=== PATIENT | male | born 1985 | race Hispanic/Latino ===

== ENCOUNTER 2019-12-25 17:01 | Inpatient (IN) | payer OTHER, SELFPAY ==
[2019-12-25] MEDS ORDERED: Ondansetron PF 4 MG/2 ML Vial ONE (17:14)
[2019-12-25] MEDS ORDERED: Fentanyl 100 MCG/2 ML VIAL ONE (17:14)
[2019-12-25] MEDS ORDERED: Ketorolac Tromethamine 30 MG/ML VIAL ONE (17:14)
[2019-12-25 17:48] LABS: #Lymphocytes 1.2 thou/uL (1.20-3.40); #Monocytes 1.2 thou/uL (0.11-0.59); %Basophils 0.4 % (0.0-1.0); %Eosinophils 0.1 % (0.0-10.0); %Lymphocytes 12.8 % (21.0-51.0); %Monocytes 12.3 % (0.0-10.0); %Neutrophils 74.4 % (42.0-75.0); Hemoglobin 17.8 g/dL (14.0-18.0); Mean Corpuscular HGB CONC 35.1 g/dL (32.0-36.0); Mean Corpuscular Hemoglobin 31.6 pg (27.0-31.0); Mean Corpuscular Volume 89.9 fL (78.0-98.0); Platelet Count 366 thou/uL (130-400); RBC Distribution Width 14.7 % (11.5-14.5); Red Blood Cell (RBC) Count 5.63 mill/uL (4.70-6.10); White Blood Cell (WBC) Count 9.4 thou/uL (4.8-10.8)
[2019-12-25 18:17] LABS: ALT (SGPT) 32 U/L (8-55); AST (SGOT) 19 U/L (5-34); Albumin 3.4 g/dL (3.5-5.0); Alkaline Phosphatase 73 U/L (40-110); BUN (Urea Nitrogen) 26 mg/dL (8.9-20.6); Bilirubin, Total 0.7 mg/dL (0.2-1.2); Calc. Creatinine Clearance 0 mL/min (70-130); Calcium 7.1 mg/dL (7.8-10.44); Carbon Dioxide Less than 8 mmol/L (22-29); Chloride 81 mmol/L (98-107); Estimated GFR-MDRD 15; Globulin 4.8 g/dL (2.4-3.5); Glucose 1260 mg/dL (70-105); Potassium 6.7 mmol/L (3.5-5.1); Protein, Total 8.2 g/dL (6.0-8.3); Sodium 118 mmol/L (136-145)
[2019-12-25 18:18] LABS: Lipase 3216 U/L (8-78)
[2019-12-25] MEDS ORDERED: Morphine 4 MG/ML VIAL ONE (18:21)
[2019-12-25 18:27] LABS: Bacteria/HPF None Seen HPF (None Seen); Bilirubin 1+ (Negative); Blood, Urine Negative (Negative); Clarity Clear (Clear); Glucose, Urine (Dipstick) Greater than 1000 mg/dL (Negative); Ketone, Urine 10 mg/dL (Negative); Leukocyte 25 Leu/uL (Negative); Nitrite Negative (Negative); Protein, Urine (Dipstick) 30 mg/dL (Neg-Trace); RBC/HPF 0-3 HPF (0-3); Specific Gravity, Urine 1.022 (1.002-1.036); Squamous Epithelial 0-3 HPF (0-3); Urobilinogen Normal mg/dL (Less than 2)
[2019-12-25 18:53] LABS: Acetaminophen Less than 6.0 mcg/mL (10.0-30.0); Alcohol Less than 10 mg/dL (Less than 10); Salicylate Less than 8.0 mg/dL (15.0-30.0)
[2019-12-25 18:59] LABS: Magnesium 1.9 mg/dL (1.6-2.6); Phosphorus 5.3 mg/dL (2.3-4.7)
[2019-12-25 19:02] LABS: Base Excess-Venous -14.4 mmol/L (-2.0 to 3.0); Bicarbonate (HCO3v) 10.2 mmol/L (22.0-28.0); CO2 Tension (PvCO2) 22.5 mmHg (40.0-50.0); Calcium, Ionized 0.74 mmol/L (See Comments:); Chloride 92 mmol/L (98-107); Hemoglobin - Calc 17.5 g/dL (14.0-18.0); Sodium 117 mmol/L (138-145); T. Carbon Dioxide 10.9 mmol/L (22.0-28.0); vO2 Saturation-calc 85.3 % (60.0-85.0)
[2019-12-25 19:02] LABS: Amphetamine Not Detected (NotDetected); Barbiturates Screen Not Detected (NotDetected); Benzodiazepine Screen Not Detected (NotDetected); Cocaine Metabolite Screen Not Detected (NotDetected); Medtox Control Line Valid? VALID (VALID); Medtox Reader # READER 1; Methadone Not Detected (NotDetected); Methamphetamine Not Detected (NotDetected); Opiate Screen Not Detected (NotDetected); Oxycodone Screen Not Detected (NotDetected); Phencyclidine (PCP) Not Detected (NotDetected); THC/Cannabinoid Screen Not Detected (NotDetected); Tricyclic Screen Not Detected (NotDetected)
--- NOTE | 2019-12-25 19:05 | CT ---
CT OF THE ABDOMEN AND PELVIS WITHOUT IV CONTRAST: Indication: History of abdominal pain. Comparison: None FINDINGS: The lung bases are clear. There is diffuse fatty infiltration of the liver with areas of focal hepatic sparing in the gallbladd er fossa. The unopacified gallbladder is unremarkable appearing. There is prominent inflammatory change surrounding the pancreas. There is edematous change involving the mesenteric leaves. There is increased fluid in the anterior pararenal space tracking down the rig ht posterolateral retroperitoneum. A very small amount of fluid is seen within the left anterior para renal space. There are small hypodensities involving the kidneys, difficult to characterize due to their size. No hydronephrosis is evident. Adrenal glands and spleen appear within normal limits. The large bowel is largely decompressed. There are thickened loops of jejunum within the left upper q uadrant which may be related to reactive enteritis from possible pancreatitis. The appendix is not definitely seen. The bladder is partially decompressed. The rectum and perirectal soft tissues are unremarkable. No acute osseous abnormality is evident. IMPRESSION: 1. Findings suspicious for acute pancreatitis with edematous change seen within the anterior pararena l space extending into the mesenteric leaves. There is suspected reactive enteritis of loops of jejun um. A component of ischemic enteritis cannot be entirely excluded. Follow up CT of the abdomen and pe lvis utilizing IV contrast may be better able to further characterize the stem complications related to pancreatitis. 2. Prominent fatty liver. 3. Hypodense lesions involving the kidneys, difficult to further characterize due to their size. Foll ow up renal ultrasound may be helpful for additional characterization. POS: KARL
[2019-12-25] MEDS ORDERED: INSULIN REGULAR IN 0.9 % NACL 100 UNIT/100 ML BAG ONE (19:32)
[2019-12-25 22:35] VITALS: BMI 34.2
[2019-12-25] MEDS ORDERED: Morphine 4 MG/ML VIAL SLOW IVP PRN ×2 (22:47→23:12)
[2019-12-25] MEDS ORDERED: Sodium Chloride 0.9% 1,000 ML IV PRN ×8 (22:53→23:00)
[2019-12-25] MEDS ORDERED: NS 0.9% w/ 20 MEQ KCL 1,000 ML IV PRN ×2 (22:53)
[2019-12-25] MEDS ORDERED: Acetaminophen 500 MG TAB PO PRN (22:53)
[2019-12-25] MEDS ORDERED: Ondansetron ODT 4 MG TAB PO PRN (22:53)
[2019-12-25] MEDS ORDERED: Dextrose 5 %-0.45 % NaCl 1,000 ML IV PRN ×2 (22:53→23:00)
[2019-12-25] MEDS ORDERED: Electrolyte Replacement Protoc 1 EACH EACH IVPB PRN (22:53)
[2019-12-25] MEDS ORDERED: Labetalol HCl 100 MG/20 ML VIAL SLOW IVP PRN (22:53)
[2019-12-25] MEDS ORDERED: D5 1/2 NS w/20 mEq KCL 1,000 ML IV PRN (23:00)
[2019-12-25] MEDS ORDERED: Dextrose 50% Abboject 50 ML SYRINGE SLOW IVP PRN (23:00)
[2019-12-25] MEDS ORDERED: Ondansetron ODT 4 MG TAB SL PRN (23:00)
[2019-12-25] MEDS ORDERED: ADD ELECTROLYTE REPLACEMENT SET TO PROFILE FS SCH (23:00)
[2019-12-25] MEDS ORDERED: HUMULIN R 100 UNITS in Sodium Chloride 0.9% 100 ML IVPB SCH (23:00)
[2019-12-25] MEDS ORDERED: Ondansetron PF 4 MG/2 ML Vial IVP PRN (23:00)
[2019-12-25] MEDS ORDERED: Insulin Regular 300 UNITS/3 ML VIAL IVP SCH (23:00)
[2019-12-25] MEDS ORDERED: NS 0.9% w/ 20 MEQ KCL 1,000 ML/1,000 ML BAG IV PRN ×2 (23:00)
[2019-12-25] MEDS ORDERED: Dextrose 5% in Water 1,000 ML IV PRN (23:00)
[2019-12-25 23:34] LABS: Anion Gap 27 mmol/L (10-20); BUN (Urea Nitrogen) 28 mg/dL (8.9-20.6); Calc. Creatinine Clearance 50 mL/min (70-130); Calcium 6.9 mg/dL (7.8-10.44); Carbon Dioxide 9 mmol/L (22-29); Chloride 96 mmol/L (98-107); Estimated GFR-MDRD 22; Glucose 925 mg/dL (70-105); Potassium 5.1 mmol/L (3.5-5.1); Sodium 127 mmol/L (136-145)
--- NOTE | 2019-12-26 01:31 | HP ---
PRIMARY CARE PROVIDER: Johnson Robertson. CHIEF COMPLAINT: Nausea, vomiting, general malaise, and weight loss. HISTORY OF PRESENT ILLNESS: This is a 34-year-old male, who presents to [facility] Emergency Department complaining of progressive nausea, vomiting, general malaise, abdominal cramping, poor oral intake, extreme thirst, and weight loss over the last several weeks. 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 The patient denied any exposure history or coworkers with similar complaints. The patient admits to extreme thirst, drinking multiple gallons of water a day to stay hydrated, but never able to catch up to his thirst. The patient denied any change to his bowel habits, but has noted profound weight loss of over 40 pounds in the last 4 weeks. The patient states he does lift weights and typically has more muscle mass that has decreased in the last several weeks. The patient states that he takes lisinopril for hypertension, which was prescribed to him while incarcerated, at which point, he was released and was given a year long supply. The patient denies follow up with any specific clinic or provider for followup. The patient does admit to drinking alcohol up to multiple beers in a week's time, but the quantity was unclear. In the emergency room, the patient underwent general evaluation with metabolic screening showing severe hyperglycemia with initial glucose of 1260. The patient was also noted with acute kidney injury with a creatinine of 4.5 and potassium ranging between 6.7 to 7.0. The patient was also noted with a lipase of over [address] imaging of the abdomen and pelvis confirming inflammatory changes. The patient was diagnosed with diabetic ketoacidosis, receiving aggressive IV fluid hydration in addition to insulin infusion with Novolin R, morphine sulfate, fentanyl, Toradol, and Zofran. PAST MEDICAL HISTORY: 1. Hypertension, treated with lisinopril. 2. Accelerated weight loss. PAST SURGICAL HISTORY: Reviewed and negative. CURRENT MEDICATIONS: Lisinopril 10 mg one tablet p.o. daily. ALLERGIES: NO KNOWN DRUG ALLERGIES. FAMILY HISTORY: Mother with diabetes mellitus. 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 Drinks socially weekly, quantity unclear. No tobacco or illicit drug use. REVIEW OF SYSTEMS: CONSTITUTIONAL: Negative for weight loss or gain, ability to conduct usual activities. SKIN: Negative for rash, itching. EYES: Negative for double vision, pain. ENT/MOUTH: Negative for nose bleeding, neck stiffness, pain, tenderness. CARDIOVASCULAR: Negative for palpitations, dyspnea on exertion, orthopnea. RESPIRATORY: Negative for shortness of breath, wheezing, cough, hemoptysis, fever or night sweats. GASTROINTESTINAL: Negative for poor appetite, abdominal pain, heartburn, nausea, vomiting, constipation, or diarrhea. GENITOURINARY: Negative for urgency, frequency, dysuria, nocturia. MUSCULOSKELETAL: Negative for pain, swelling. NEUROLOGIC/PSYCHIATRIC: Negative for anxiety, depression. ALLERGY/IMMUNOLOGIC: Negative for skin rash, bleeding tendency. Review of systems otherwise negative except as stated per HPI. PHYSICAL EXAMINATION: VITAL SIGNS: On admission, blood pressure 123/77, pulse 115, respiratory rate 20, temperature 97.8 degrees Fahrenheit, O2 saturation 100% on room air. GENERAL APPEARANCE: This is a 34-year-old male, ill appearing, lethargic, answers questions, in moderate distress. HEENT: Pupils are equal, round, reactive to light and accommodation. Extraocular muscles are intact. Mild conjunctival injection bilaterally. Nares patent. OP is clear. Teeth in poor repair. Oral mucosa dry. NECK: Supple. No cervical adenopathy. No thyromegaly. No carotid bruits. No JVD appreciated. Cervical spine with full active and passive range of motion. No meningeal signs noted. CHEST: Lungs are clear to auscultation bilaterally. CARDIOVASCULAR: S1, S2 with tachycardia. No murmur, rub, or gallop appreciated. ABDOMEN: Rounded with tenderness to palpation in the mid epigastric region. Bowel sounds are positive in all 4 quadrants. No palpable mass. No rebound. EXTREMITIES: Warm and dry with fair turgor. No clubbing, cyanosis, or asymmetric edema appreciated. Pulses palpable distally at the dorsalis pedis, posterior tibial, and popliteal arteries bilaterally. Capillary refill less than 2 seconds. NEUROLOGIC: Cranial nerves 2 through 12 are grossly intact. No focal or lateralizing signs appreciated. PERTINENT LABORATORY AND X-RAY FINDINGS: Sodium 118, potassium 6.7, chloride 81, CO2 less than 8, BUN 26, creatinine 4.50, glucose 1260, serum osmolality 357, calcium 7.1, phosphorus 5.3, magnesium 1.9. LFTs within normal limits. Albumin 3.4. Lipase 3216. TSH 3.16. CBC showed a white blood cell count of 9.4, hemoglobin 17.8, hematocrit 51, platelet count 366 with 74% neutrophils. Venous blood gas dated 12/25/2019 showed a pH of 7.26, pCO2 of 22.5, PO2 of 56, bicarb 10.2. Urine positive for greater than 1000 glucose, positive ketones, bilirubin, and leukocyte esterase. Urine drug screen dated 12/25/2019 negative. Beta-hydroxybutyrate level 10.33. Plasma alcohol level less than 10. CT of the abdomen and pelvis dated 12/25/2019 showed inflammatory changes of the pancreas with reactive enteritis in the loops of jejunum. Prominent fatty liver disease. EKG dated 12/25/2019 by my interpretation shows sinus tachycardia with heart rates in the 110s. Attenuated R-waves noted in the precordial leads. Peak T-waves noted. Normal axis. ASSESSMENT/PLAN: 1. Diabetic ketoacidosis. New onset diabetes by history. Admit to intermediate care unit and continue DKA protocol with insulin infusion, q.1 hour Accu-Cheks. Check A1c level in the a.m. Continue electrolyte replacement per protocol. Likely related to underlying acute pancreatitis. 2. Acute pancreatitis. We will continue supportive management. N.p.o. except for ice chips and sips of water. Pain control with morphine sulfate. Consult GI Service in the a.m. for any further recommendations. Repeat lipase in the a.m. 3. Acute kidney injury, suspect secondary to profound dehydration. Continue aggressive IV fluid resuscitation and avoid nephrotoxic agents and limit contrast exposure. 4. Hyperkalemia secondarily to profound acidosis. We will continue management as outlined previously. Serial potassium monitoring. Continue telemetry. 5. Hyponatremia secondarily to pseudohyponatremia due to severe hyperglycemia. Continue IV fluids as outlined previously with serial sodium monitoring. 6. Prophylaxis. SCDs while in bed. Pepcid 20 mg IV q.12 hours. Dietitian consult in the a.m. CODE STATUS: Full. Surrogate medical decision maker is patient's brother. Job ID: [id number]
[2019-12-26 01:51] LABS: Glucose 788 mg/dL (70-105)
[2019-12-26] MEDS: Ondansetron PF 4 MG/2 ML Vial IVP PRN ×2 (03:34→10:28)
[2019-12-26 04:17] LABS: Hemoglobin A1c 12.5 % (4.0-6.0)
[2019-12-26 04:30] LABS: Glucose 661 mg/dL (70-105)
[2019-12-26 04:32] LABS: Anion Gap 21 mmol/L (10-20); BUN (Urea Nitrogen) 27 mg/dL (8.9-20.6); Calc. Creatinine Clearance 65 mL/min (70-130); Calcium 7.7 mg/dL (7.8-10.44); Carbon Dioxide 14 mmol/L (22-29); Chloride 104 mmol/L (98-107); Estimated GFR-MDRD 30; Potassium 3.8 mmol/L (3.5-5.1); Sodium 135 mmol/L (136-145)
[2019-12-26 04:43] LABS: Glucose 657 mg/dL (70-105)
[2019-12-26 04:45] LABS: Lipase 1332 U/L (8-78)
[2019-12-26] MEDS ORDERED: Magnesium 2 GM/50 ML 2 GM in Premix Bag 1 BAG IVPB SCH (05:15)
[2019-12-26 06:49] LABS: Anion Gap 21 mmol/L (10-20); BUN (Urea Nitrogen) 26 mg/dL (8.9-20.6); Calc. Creatinine Clearance 74 mL/min (70-130); Calcium 7.5 mg/dL (7.8-10.44); Carbon Dioxide 15 mmol/L (22-29); Chloride 106 mmol/L (98-107); Estimated GFR-MDRD 35; Glucose 510 mg/dL (70-105); Potassium 3.5 mmol/L (3.5-5.1); Sodium 138 mmol/L (136-145)
[2019-12-26] MEDS: HUMULIN R 100 UNITS in Sodium Chloride 0.9% 100 ML IVPB SCH (07:04)
[2019-12-26 07:22] LABS: Glucose 476 mg/dL (70-105)
[2019-12-26] MEDS ORDERED: Famotidine/PF 20 mg/2ml Vial SLOW IVP SCH (09:00)
[2019-12-26] MEDS: Potassium Chloride 20 MEQ in Premix Bag 1 BAG IVPB SCH ×2 (09:10→11:29)
[2019-12-26 10:33] LABS: Anion Gap 19 mmol/L (10-20); BUN (Urea Nitrogen) 25 mg/dL (8.9-20.6); Calc. Creatinine Clearance 91 mL/min (70-130); Calcium 7.6 mg/dL (7.8-10.44); Carbon Dioxide 16 mmol/L (22-29); Chloride 110 mmol/L (98-107); Estimated GFR-MDRD 43; Glucose 375 mg/dL (70-105); Sodium 141 mmol/L (136-145)
[2019-12-26 10:40] LABS: Magnesium 2.6 mg/dL (1.6-2.6)
[2019-12-26 12:00] LABS: SARS-CoV-2 MS2 Positive; SARS-CoV-2 N Gene Negative; SARS-CoV-2 S Gene Negative; SARS-CoV-2 by NAA Not Detected (NotDetected); SARS-CoV-2 orf1ab Negative
[2019-12-26] MEDS: Multivitamins, Adult 10 ML, Folic Acid 1 MG, Thiamine HCl 100 MG in Dextrose 5 %-0.45 %... IV SCH (13:26)
[2019-12-26] MEDS ORDERED: Potassium Phosphate 15 MMOL in Sodium Chloride 0.9% 100 ML IVPB SCH (13:30)
[2019-12-26] MEDS ORDERED: PHOS-NAK 1 PKT PACK PO SCH (14:00)
[2019-12-26 14:43] LABS: Anion Gap 18 mmol/L (10-20); BUN (Urea Nitrogen) 23 mg/dL (8.9-20.6); Calc. Creatinine Clearance 103 mL/min (70-130); Calcium 7.9 mg/dL (7.8-10.44); Carbon Dioxide 18 mmol/L (22-29); Chloride 111 mmol/L (98-107); Estimated GFR-MDRD 50; Glucose 340 mg/dL (70-105); Potassium 4.1 mmol/L (3.5-5.1); Sodium 143 mmol/L (136-145)
--- NOTE | 2019-12-26 16:57 | CON ---
DATE OF CONSULTATION: 12/26/2019 CONSULTING PHYSICIAN: Dr. Angelo Carbajal. REASON FOR CONSULTATION: Pancreatitis. HISTORY OF PRESENT ILLNESS: Mr. Lucas is a pleasant 34-year-old gentleman, who came to the hospital late yesterday afternoon with complaints of 40-pound weight loss, nausea, vomiting, severe thirst, and general malaise. More recently, he developed severe epigastric pain. A diagnosis of new onset diabetes with DKA was made with an initial glucose of 1260. He also had a creatinine of 4.5 and lipase of over 3000. A CT without contrast showed inflammatory changes in the pancreas. He has been treated. Presently, the patient states he has pretty severe epigastric pain still. He has had no nausea or vomiting. I talked with his nurse. He has received about 5 L of fluid since admission. He is voiding about 400 mL so far today. He has had no fever or chills. PAST MEDICAL HISTORY: Hypertension, apparently it was diagnosed when he was incarcerated. He has been treated with lisinopril. PAST SURGICAL HISTORY: Negative. MEDICATIONS: At home, lisinopril. Medications here; 1. P.r.n. Tylenol. 2. Tums. 3. D5 half-normal at 250 an hour. 4. Pepcid 20 IV daily. 5. Insulin drip. 6. P.r.n. labetalol. 7. Electrolyte replacement protocol. 8. P.r.n. morphine. 9. P.r.n. Zofran. 10. He has had potassium replacement 20 mEq today. ALLERGIES: NONE KNOWN. FAMILY HISTORY: Mother had diabetes. No family history of pancreatitis or colon cancer or liver disease. SOCIAL HISTORY: The patient works with [employer]. Drinks about 6 packs 3 days a week. Does not smoke or use drugs. REVIEW OF SYSTEMS: GENERAL: Notable for about a 40-pound weight loss over the past several months, fatigue, myalgias, and inability really to stay hydrated. SKIN: Negative for rash. EYES: Some change in vision, but no double vision. No eye pain. MOUTH: No history of thrush, dysphagia, or odynophagia. No melena, hematochezia, or hematemesis. HEART: Negative for palpitations, tachycardia, dyspnea on exertion, orthopnea, or chest pain. RESPIRATORY: Negative for shortness of breath, cough, or wheezing. GI: Positive for epigastric pain, severe, some radiation to the back. No history of gallstones. No prior history of pancreatitis. No change in bowel function, melena, or hematochezia. : Negative for dysuria, frequency, or urgency. MUSCULOSKELETAL: Negative for joint pain, rashes, or swelling. NEUROPSYCHIATRY: Negative for history of anxiety or depression. No history of prior strokes or CVAs or focal weaknesses. Review of systems otherwise per admission H and P. PHYSICAL EXAMINATION: GENERAL: The patient is resting in bed. He is somewhat uncomfortable with epigastric pain. He is moving around a little bit in bed, trying to get comfortable. HEENT: Nonicteric. Oropharynx is moist. NECK: Supple without nodes. There is no thyromegaly. There is no supraclavicular or infraclavicular adenopathy. LUNGS: Clear. HEART: Regular without clicks or murmurs. ABDOMEN: Soft, mildly protuberant, but no distention. No shifting dullness or fluid wave. Bowel sounds are quiescent. There is no evidence of bruising in the abdominal wall or flanks. There is no CVA tenderness. EXTREMITIES: Reveal no clubbing, cyanosis, or edema. SKIN: Fairly good skin turgor and good color. VITAL SIGNS: Temperature max 99.1, presently 96.2. O2 saturation 97%, blood pressure 145/119, heart rate 111. In's and out's not recorded, but the nurse tells me he has had about 400 mL of urine out today and he has had about 4 L so far bolus 250 an hour. LABORATORY STUDIES: White count on admission was 9, hemoglobin 17, platelet count of 366. Blood gas last night showed pH 7.26 and bicarb of 10. Sodium 141, potassium 4. BUN and creatinine are 25 and 1.7, down from 26 and 4.5 on admission. Glucose is 375, down from over 1000 on admission. Sodium has come up from 118. Urine osmolality is still elevated at 329. Calcium 7.6, phosphorus is 2, magnesium is 2.6. Triglycerides 1279. Lipase was 3260 on admission, 1332 today. Beta hydroxybutyrate dropped from 10 to 3. Drug screen was negative. Alcohol screen was negative. CT scan is reviewed by myself. ASSESSMENT: 1. New onset diabetes with DKA, managed appropriately by Medicine Service, he is having rapid improvement in his acidosis and glucose levels. 2. Severe dehydration with marked improvement with aggressive hydration. 3. Pancreatitis, likely related to alcohol and hypertriglyceridemia, which goes along with his DKA. RECOMMENDATIONS: 1. Continue n.p.o. as he still has pain. 2. Control pain. 3. Follow labs. 4. IV PPI for ulcer prophylaxis in light of heavy alcohol abuse in the past and pancreatitis. 5. Continue aggressive fluid resuscitation. 6. Strict in's and out's. 7. Banana bag daily. 8. At this point in time, it does not seem that he is at risk for DTs. 9. Continue to monitor magnesium and phosphorus daily. 10. The hypertriglyceridemia will improve with the insulin drip, but he may need diabetic medicines later. It is probably the combination of the newly diagnosis diabetes and alcohol that has given him elevated triglycerides, which is resulted in pancreatitis. Job ID: [id number]
[2019-12-26 18:36] LABS: Anion Gap 16 mmol/L (10-20); BUN (Urea Nitrogen) 20 mg/dL (8.9-20.6); Calc. Creatinine Clearance 122 mL/min (70-130); Calcium 7.9 mg/dL (7.8-10.44); Carbon Dioxide 15 mmol/L (22-29); Chloride 114 mmol/L (98-107); Estimated GFR-MDRD 61; Glucose 311 mg/dL (70-105); Potassium 4.1 mmol/L (3.5-5.1); Sodium 141 mmol/L (136-145)
--- NOTE | 2019-12-26 19:14 | PDOC.HOSPP ---
- Subjective Encounter Date: 12/26/19 Encounter Time: 11:00 Subjective: Patient seen and examined for acute pancreatitis with severe acute kidney injury and hyperkalemia. Abdominal pain and nausea slowly improving. No fever or chills reported. Denies any chest pain or shortness of breath. - Objective Vital Signs & Weight: Vital Signs (12 hours) Temp Pulse Ox 12/26/19 15:26 97.7 F 12/26/19 11:22 97.3 F L 12/26/19 08:00 97 12/26/19 07:33 96.2 F L Weight Admit Weight 245 lb 1.6 oz Weight 245 lb 1.6 oz Most Recent Monitor Data Heart Rate from ECG 101 NIBP 165/106 NIBP BP-Mean 125 Respiration from ECG 27 SpO2 99 I&O: 12/25/19 12/26/19 12/27/19 06:59 06:59 06:59 Intake Total 2048 3400 Output Total 2200 1250 Balance -152 2150 Result Diagrams: 12/25/19 17:27 12/26/19 18:05 Additional Labs: Accuchecks 12/26/19 12/26/19 12/26/19 18:57 18:07 17:03 POC Glucose 227 H 297 H 321 H 12/26/19 12/26/19 12/26/19 16:26 15:07 14:02 POC Glucose 283 H 293 H 299 H 12/26/19 12/26/19 12/26/19 13:23 12:15 11:06 POC Glucose 292 H 332 H 317 H 12/26/19 12/26/19 12/26/19 10:12 09:10 08:09 POC Glucose 328 H 371 H 380 H 12/25/19 12/25/19 12/25/19 22:27 21:55 20:44 POC Glucose Greater than 500 H Greater than 500 H Greater than 500 H 12/25/19 19:45 POC Glucose Greater than 500 H Laboratory Tests 12/25/19 12/26/19 12/26/19 17:20 03:43 10:02 Serum Osmolality 357 H* Phosphorus 2.0 L Triglycerides Lipase 1332 H 12/26/19 12/26/19 10:02 10:02 Serum Osmolality 329 H* Phosphorus Triglycerides 1279 H Lipase Laboratory Tests 12/26/19 03:44 Hemoglobin A1c 12.5 H Radiology Reviewed by me: Yes (Abdomen CTacute pancreatitis) EKG Reviewed by me: Yes (Sinus tachycardia on telemetry) Hospitalist ROS - Review of Systems Respiratory: denies: cough, dry, shortness of breath, hemoptysis, SOB with excertion, pleuritic pain, sputum, wheezing, other Cardiovascular: denies: chest pain, palpitations, orthopnea, paroxysmal noc. dyspnea, edema, light headedness, other - Medication Medications: Active Medications Generic Name Dose Route Start Last Admin Trade Name Freq PRN Reason Stop Dose Admin Potassium Chloride/Sodium Chloride 1,000 mls @ 500 mls/hr 12/25/19 22:53 12/26/19 09:10 Ns 0.9% W/ 20 Meq Kcl IV 1,000 mls .Q2H PRN Administration Step 2 of DKA Protocol Protocol Insulin Human Regular 100 101 mls @ 0 mls/hr 12/25/19 22:53 12/26/19 07:04 units/ Sodium Chloride IVPB 101 mls INF NASIM Administration Protocol Titrate Multivitamins 10 ml/ Folic 1,011.2 mls @ 250 mls/hr 12/26/19 11:15 12/26/19 13:26 Acid 1 mg/ Thiamine HCl 100 mg IV 1,011.2 mls / Dextrose/Sodium Chloride Q24HR NASIM Administration Morphine Sulfate 4 mg 12/25/19 23:12 12/26/19 10:24 Morphine 4 Mg/Ml Vial SLOW IVP 4 mg Q4H PRN Administration Moderate to Severe Pain (6-10) Ondansetron HCl 4 mg 12/25/19 22:53 12/26/19 10:28 Ondansetron Pf 4 Mg/2 Ml Vial IVP 4 mg Q6H PRN Administration Nausea/Vomiting - Exam General Appearance: NAD Eye: PERRL ENT: normocephalic atraumatic, no oropharyngeal lesions Neck: supple, no JVD Heart: RRR, no gallops, no rubs, normal peripheral pulses Respiratory: no wheezes, no rales, no ronchi, normal chest expansion Gastrointestinal: soft, normal bowel sounds, no guarding, no rigidity, tender to palpation (In the epigastric region) Extremities: no cyanosis, no clubbing Neurological: cranial nerve grossly intact, normal sensation to touch, no weakness, no focal deficits Musculoskeletal: normal tone, normal strength Psychiatric: normal affect, A&O x 3 Hosp A/P (1) Acute pancreatitis Code(s): K85.90 - ACUTE PANCREATITIS WITHOUT NECROSIS OR INFECTION, UNSP Status: Acute (2) Diabetic ketoacidosis Code(s): E11.10 - TYPE 2 DIABETES MELLITUS WITH KETOACIDOSIS WITHOUT COMA Status: Acute (3) Hyperkalemia Code(s): E87.5 - HYPERKALEMIA Status: Acute (4) Acute kidney injury Code(s): N17.9 - ACUTE KIDNEY FAILURE, UNSPECIFIED Status: Acute (5) New onset type 2 diabetes mellitus Code(s): E11.9 - TYPE 2 DIABETES MELLITUS WITHOUT COMPLICATIONS Status: Acute (6) Hypertriglyceridemia Code(s): E78.1 - PURE HYPERGLYCERIDEMIA Status: Acute (7) Electrolyte abnormality Code(s): E87.8 - OTH DISORDERS OF ELECTROLYTE AND FLUID BALANCE, NEC Status: Acute (8) Obesity (BMI 30.0-34.9) Code(s): E66.9 - OBESITY, UNSPECIFIED Status: Chronic - Plan DVT proph w/SCDs 12/25 Continue IMCU monitoring. Continue insulin drip per protocol. Patient will require insulin drip due to significant hypertriglyceridemia. Will monitor electrolytes closely. Replace electrolytes. N.p.o. for acute pancreatitis. Change Pepcid to Protonix. GI input appreciated. N.p.o. except for sips of water and ice chips. Recheck labs in a.m. Dietitian input appreciated. Patient was extensively counseled on diabetes mellitus type 2. His A1c is 12.5. He will probably require insulin at discharge.
[2019-12-26] MEDS: D5 1/2 NS w/20 mEq KCL 1,000 ML IV PRN (21:10)
[2019-12-26 22:35] LABS: Glucose 260 mg/dL (70-105)
[2019-12-27] MEDS: Calcium Carbonate 500 MG ChewTAB PO PRN ×2 (00:50→05:01)
[2019-12-27] MEDS: HUMULIN R 100 UNITS in Sodium Chloride 0.9% 100 ML IVPB SCH (00:50)
[2019-12-27] MEDS: D5 1/2 NS w/20 mEq KCL 1,000 ML IV PRN ×2 (02:08→06:03)
[2019-12-27 04:22] LABS: Anion Gap 12 mmol/L (10-20); BUN (Urea Nitrogen) 14 mg/dL (8.9-20.6); Calc. Creatinine Clearance 165 mL/min (70-130); Calcium 8.2 mg/dL (7.8-10.44); Carbon Dioxide 23 mmol/L (22-29); Chloride 108 mmol/L (98-107); Estimated GFR-MDRD 87; Glucose 193 mg/dL (70-105); Lipase 450 U/L (8-78); Potassium 3.4 mmol/L (3.5-5.1); Sodium 140 mmol/L (136-145)
[2019-12-27 04:34] LABS: Phosphorus 1.5 mg/dL (2.3-4.7); Triglycerides 556 mg/dL (Less than 150)
[2019-12-27] MEDS ORDERED: Potassium Phosphate 22 MMOL in Sodium Chloride 0.9% 250 ML 250 ML IVPB SCH (04:45)
[2019-12-27] MEDS ORDERED: Magnesium 2 GM/50 ML 2 GM in Premix Bag 1 BAG IVPB SCH (04:45)
[2019-12-27] MEDS ORDERED: Dextrose 50% Abboject 50 ML SYRINGE SLOW IVP PRN (08:44)
[2019-12-27] MEDS ORDERED: Dextrose 5% in Water 1,000 ML IV PRN (08:44)
[2019-12-27] MEDS ORDERED: cloNIDine 0.1 MG TAB PO PRN (08:46)
[2019-12-27] MEDS ORDERED: Insulin Glargine 20 UNITS in Pre-Filled Syringe 1 EACH SC SCH (09:00)
[2019-12-27] MEDS ORDERED: Pantoprazole 40 MG VIAL IVP SCH (09:00)
[2019-12-27] MEDS: D5 1/2 NS w/20 mEq KCL 1,000 ML IV SCH ×2 (10:10→17:17)
[2019-12-27] MEDS: Multivitamins, Adult 10 ML, Folic Acid 1 MG, Thiamine HCl 100 MG in Dextrose 5 %-0.45 %... IV SCH (14:55)
[2019-12-27] MEDS: Insulin Regular 300 UNITS/3 ML VIAL SC PRN ×2 (17:26→20:52)
[2019-12-27] MEDS: Morphine 2 MG/ML VIAL SLOW IVP PRN ×2 (17:31→20:44)
--- NOTE | 2019-12-27 19:24 | PRG ---
DATE OF SERVICE: 12/27/2019 SUBJECTIVE: Mr. Lucas had his brother bring him some chicken and salad, which he did eat but felt full and had some pressure type epigastric pain following that. Otherwise, his abdominal pain had greatly improved prior to that earlier in the day. OBJECTIVE: VITAL SIGNS: Temperature 98.5, pulse 69, blood pressure 159/98. GENERAL: He is in no acute distress. Alert and oriented x3. LUNGS: Clear to auscultation bilaterally. HEART: Regular rate and rhythm without murmur. ABDOMEN: Mild tenderness in the epigastric region without guarding. Bowel sounds are present. EXTREMITIES: No lower extremity edema. LABORATORY DATA: Hemoglobin is 17.8 two days ago. Creatinine 0.9. Triglycerides dropped from 1200 down to 556. Lipase improved from 1300 to 450. IMPRESSION: 1. Diabetes ketoacidosis, resolved. 2. Hypertriglyceridemia induced acute pancreatitis. His acute pancreatitis is mild overall. However, he did have acute kidney injury and severe dehydration on presentation. This is improved with rehydration. 3. Hypertriglyceridemia. RECOMMENDATIONS: 1. Recommend starting gemfibrozil. 2. He can advance his diet as he tolerates to a low-fat diet. 3. Once he is tolerating his diet adequately without significant abdominal pain and his triglycerides are controlled, then he can discharge home. I will sign off for now. Please call if GI can be of assistance. Job ID: [id number]
[2019-12-27] MEDS: 1/2 NS w/KCL 20 mEq 1,000 ML IV SCH (20:49)
[2019-12-27] MEDS: NPH, Human Insulin Isophane 300 UNIT/3 ML VIAL SC SCH (20:51)
[2019-12-27] MEDS ORDERED: NPH, Human Insulin Isophane 300 UNIT/3 ML VIAL SC SCH (21:00)
--- NOTE | 2019-12-27 22:48 | PDOC.HOSPP ---
- Subjective Encounter Date: 12/27/19 Encounter Time: 10:00 Subjective: Patient seen and examined for diabetic ketoacidosis with acute pancreatitis. Triglycerides and 500 range today. Abdominal pain slowly improving. Some nausea without any vomiting. Had 1 small bowel movement earlier - Objective Vital Signs & Weight: Vital Signs (12 hours) Temp Pulse Resp BP Pulse Ox 12/27/19 20:00 99.9 F H 96 18 139/85 97 12/27/19 18:01 98.5 F 69 20 159/98 H 12/27/19 15:34 98.9 F 12/27/19 12:00 98.0 F Weight Admit Weight 245 lb 1.6 oz Weight 245 lb 1.6 oz Most Recent Monitor Data Heart Rate from ECG 91 NIBP 147/112 NIBP BP-Mean 123 Respiration from ECG 21 SpO2 96 I&O: 12/26/19 12/27/19 12/28/19 06:59 06:59 06:59 Intake Total 2048 6602 604 Output Total 2200 2300 200 Balance -152 4302 404 Result Diagrams: 12/25/19 17:27 12/27/19 03:21 Additional Labs: Accuchecks 12/27/19 12/27/19 12/27/19 20:47 15:36 12:12 POC Glucose 257 H 240 H 246 H 12/27/19 12/27/19 12/27/19 10:18 08:11 06:02 POC Glucose 243 H 193 H 137 H 12/27/19 12/27/19 12/27/19 05:00 02:10 01:08 POC Glucose 156 H 188 H 201 H 12/27/19 12/26/19 00:09 23:00 POC Glucose 233 H 234 H EKG Reviewed by me: Yes (Sinus rhythm on telemetry) Hospitalist ROS - Review of Systems Respiratory: denies: cough, dry, shortness of breath, hemoptysis, SOB with excertion, pleuritic pain, sputum, wheezing, other Cardiovascular: denies: chest pain, palpitations, orthopnea, paroxysmal noc. dyspnea, edema, light headedness, other - Medication Medications: Active Medications Generic Name Dose Route Start Last Admin Trade Name Freq PRN Reason Stop Dose Admin Calcium Carbonate 1,000 mg 12/25/19 22:53 12/27/19 05:01 Calcium Carbonate 500 Mg Chewtab PO 1,000 mg Q4H PRN Administration Heartburn or Indigestion Multivitamins 10 ml/ Folic 1,011.2 mls @ 250 mls/hr 12/26/19 11:15 12/27/19 14:55 Acid 1 mg/ Thiamine HCl 100 mg IV Not Given / Dextrose/Sodium Chloride Q24HR NASIM Potassium Chloride/Sodium Chloride 1,000 mls @ 75 mls/hr 12/27/19 17:30 12/27/19 20:49 1/2 Ns W/Kcl 20 Meq IV 1,000 mls .[id number] NASIM Administration Insulin Human NPH 10 unit 12/27/19 21:00 12/27/19 20:51 Nph, Human Insulin Isophane 300 Unit/3 Ml Vial SC 10 unit HS NASIM Administration Insulin Human Regular 0 units 12/27/19 08:44 12/27/19 17:26 Insulin Regular 300 Units/3 Ml Vial SC 4 unit .MODERATE SLIDING SC PRN Administration Moderate Correctional Scale Insulin Human Regular 0 units 12/27/19 08:44 12/27/19 20:52 Insulin Regular 300 Units/3 Ml Vial SC 3 unit .BEDTIME SLIDING SC PRN Administration Bedtime Correctional Scale Morphine Sulfate 2 mg 12/26/19 11:14 12/27/19 20:44 Morphine 2 Mg/Ml Vial SLOW IVP 12/29/19 11:15 2 mg Q4H PRN Administration Moderate Pain (4-6) Ondansetron HCl 4 mg 12/25/19 22:53 12/26/19 10:28 Ondansetron Pf 4 Mg/2 Ml Vial IVP 4 mg Q6H PRN Administration Nausea/Vomiting Sodium Chloride 10 ml 12/26/19 21:00 12/27/19 21:06 Flush - Normal Saline 10 Ml Syringe IVF Not Given Q12HR [facility] - Exam General Appearance: NAD Neck: supple, no JVD Heart: RRR, no gallops, no rubs, normal peripheral pulses Respiratory: no wheezes, no rales, no ronchi, normal chest expansion Gastrointestinal: non-distended, normal bowel sounds, no guarding, no rigidity, tender to palpation (Mainly in the epigastric region) Neurological: no weakness Psychiatric: A&O x 3 Hosp A/P (1) Acute pancreatitis Code(s): K85.90 - ACUTE PANCREATITIS WITHOUT NECROSIS OR INFECTION, UNSP Status: Acute (2) Diabetic ketoacidosis Code(s): E11.10 - TYPE 2 DIABETES MELLITUS WITH KETOACIDOSIS WITHOUT COMA Status: Acute (3) Hyperkalemia Code(s): E87.5 - HYPERKALEMIA Status: Acute (4) Acute kidney injury Code(s): N17.9 - ACUTE KIDNEY FAILURE, UNSPECIFIED Status: Acute (5) New onset type 2 diabetes mellitus Code(s): E11.9 - TYPE 2 DIABETES MELLITUS WITHOUT COMPLICATIONS Status: Acute (6) Hypertriglyceridemia Code(s): E78.1 - PURE HYPERGLYCERIDEMIA Status: Acute (7) Electrolyte abnormality Code(s): E87.8 - OTH DISORDERS OF ELECTROLYTE AND FLUID BALANCE, NEC Status: Acute (8) Obesity (BMI 30.0-34.9) Code(s): E66.9 - OBESITY, UNSPECIFIED Status: Chronic - Plan DVT proph w/SCDs 12/26 Continue banana bag daily. Will transition insulin drip to subcu Lantus. We will start with 20 units of Lantus. Insulin teaching. Replace electrolytes. Continue npo for acute pancreatitis. Will start gemfibrozil tomorrow. Change PPI to po. Moderate sliding scale with Accu-Chek q4 hourly. IV morphine for pain control. Recheck triglycerides and lipase in a.m. Counseled on diabetes mellitus type II 12/25 Continue IMCU monitoring. Continue insulin drip per protocol. Patient will require insulin drip due to significant hypertriglyceridemia. Will monitor electrolytes closely. Replace electrolytes. N.p.o. for acute pancreatitis. Change Pepcid to Protonix. GI input appreciated. N.p.o. except for sips of water and ice chips. Recheck labs in a.m. Dietitian input appreciated. Patient was extensively counseled on diabetes mellitus type 2. His A1c is 12.5. He will probably require insulin at discharge.
[2019-12-28] MEDS: Insulin Regular 300 UNITS/3 ML VIAL SC PRN ×5 (01:16→20:33)
[2019-12-28] MEDS: Morphine 2 MG/ML VIAL SLOW IVP PRN ×3 (01:20→11:06)
[2019-12-28] MEDS: 1/2 NS w/KCL 20 mEq 1,000 ML IV SCH ×3 (06:12→10:57)
[2019-12-28 06:28] LABS: #Lymphocytes 1.2 thou/uL (1.20-3.40); #Monocytes 0.4 thou/uL (0.11-0.59); #Neutrophils 3.4 thou/uL (1.40-6.50); %Basophils 0.7 % (0.0-1.0); %Eosinophils 0.6 % (0.0-10.0); %Lymphocytes 22.9 % (21.0-51.0); %Monocytes 8.7 % (0.0-10.0); Hemoglobin 13.5 g/dL (14.0-18.0); Mean Corpuscular HGB CONC 32.8 g/dL (32.0-36.0); Mean Corpuscular Hemoglobin 30.2 pg (27.0-31.0); Mean Corpuscular Volume 91.9 fL (78.0-98.0); Mean Platelet Volume 7.8 fL (7.4-10.4); Platelet Count 209 thou/uL (130-400); RBC Distribution Width 14.4 % (11.5-14.5); Red Blood Cell (RBC) Count 4.46 mill/uL (4.70-6.10); White Blood Cell (WBC) Count 5.1 thou/uL (4.8-10.8)
[2019-12-28 06:33] LABS: Magnesium 1.6 mg/dL (1.6-2.6)
[2019-12-28 06:45] LABS: Anion Gap 17 mmol/L (10-20); BUN (Urea Nitrogen) 10 mg/dL (8.9-20.6); Calc. Creatinine Clearance 242 mL/min (70-130); Calcium 8.5 mg/dL (7.8-10.44); Carbon Dioxide 20 mmol/L (22-29); Chloride 101 mmol/L (98-107); Estimated GFR-MDRD Greater than 90; Glucose 195 mg/dL (70-105); Phosphorus 2.9 mg/dL (2.3-4.7); Potassium 3.9 mmol/L (3.5-5.1); Sodium 134 mmol/L (136-145)
[2019-12-28] MEDS: Gemfibrozil 600 MG TAB PO SCH ×2 (07:36→16:25)
[2019-12-28] MEDS ORDERED: Magnesium 2 GM/50 ML 2 GM in Premix Bag 1 BAG IVPB SCH (08:00)
[2019-12-28] MEDS: Lisinopril 10 MG TAB PO SCH (08:28)
[2019-12-28] MEDS: NPH, Human Insulin Isophane 300 UNIT/3 ML VIAL SC SCH ×2 (08:29→20:33)
[2019-12-28] MEDS: Multivitamins, Adult 10 ML, Folic Acid 1 MG, Thiamine HCl 100 MG in Dextrose 5 %-0.45 %... IV SCH (09:37)
--- NOTE | 2019-12-28 10:07 | PDOC.HOSPP ---
- Subjective Encounter Date: 12/28/19 Encounter Time: 09:15 Subjective: Patient seen and examined for acute pancreatitis with DKA. Still has moderate amount of abdominal pain without any nausea vomiting or diarrhea. Was unable to tolerate low-fat diet this morning. - Objective Vital Signs & Weight: Vital Signs (12 hours) Temp Pulse Resp BP BP Pulse Ox 12/28/19 08:28 158/107 H 12/28/19 07:23 98.5 F 95 16 154/107 H 98 12/28/19 04:00 98.5 F 101 H 16 150/99 H 97 12/28/19 00:00 98.6 F 100 18 152/108 H 98 Weight Admit Weight 245 lb 1.6 oz Weight 245 lb 1.6 oz Most Recent Monitor Data Heart Rate from ECG 91 NIBP 147/112 NIBP BP-Mean 123 Respiration from ECG 21 SpO2 96 I&O: 12/27/19 12/28/19 12/29/19 06:59 06:59 06:59 Intake Total 6602 604 Output Total 2300 200 Balance 4302 404 Result Diagrams: 12/28/19 05:46 12/28/19 05:46 Additional Labs: Accuchecks 12/28/19 12/28/19 12/27/19 08:05 05:51 20:47 POC Glucose 184 H 181 H 257 H 12/27/19 12/27/19 12/27/19 15:36 12:12 10:18 POC Glucose 240 H 246 H 243 H 12/26/19 23:00 POC Glucose 234 H Hospitalist ROS - Review of Systems Respiratory: denies: cough, dry, shortness of breath, hemoptysis, SOB with excertion, pleuritic pain, sputum, wheezing, other Cardiovascular: denies: chest pain, palpitations, orthopnea, paroxysmal noc. dyspnea, edema, light headedness, other - Medication Medications: Active Medications Generic Name Dose Route Start Last Admin Trade Name Freq PRN Reason Stop Dose Admin Calcium Carbonate 1,000 mg 12/25/19 22:53 12/27/19 05:01 Calcium Carbonate 500 Mg Chewtab PO 1,000 mg Q4H PRN Administration Heartburn or Indigestion Gemfibrozil 600 mg 12/28/19 07:30 12/28/19 07:36 Gemfibrozil 600 Mg Tab PO 600 mg BID-AC NASIM Administration Multivitamins 10 ml/ Folic 1,011.2 mls @ 250 mls/hr 12/26/19 11:15 12/28/19 09:37 Acid 1 mg/ Thiamine HCl 100 mg IV 12/28/19 23:59 1,011.2 mls / Dextrose/Sodium Chloride Q24HR NASIM Administration Magnesium Sulfate 2 gm/ Device 50 mls @ 100 mls/hr 12/28/19 08:00 12/28/19 08:28 IVPB 12/28/19 12:00 50 mls NOW NASIM Administration Insulin Human NPH 20 unit 12/28/19 09:00 12/28/19 08:29 Nph, Human Insulin Isophane 300 Unit/3 Ml Vial SC 20 unit QAM NASIM Administration Insulin Human NPH 10 unit 12/27/19 21:00 12/27/19 20:51 Nph, Human Insulin Isophane 300 Unit/3 Ml Vial SC 10 unit HS NASIM Administration Insulin Human Regular 0 units 12/27/19 08:44 12/28/19 06:15 Insulin Regular 300 Units/3 Ml Vial SC 2 unit .MODERATE SLIDING SC PRN Administration Moderate Correctional Scale Insulin Human Regular 0 units 12/27/19 08:44 12/28/19 01:16 Insulin Regular 300 Units/3 Ml Vial SC 2 unit .BEDTIME SLIDING SC PRN Administration Bedtime Correctional Scale Lisinopril 10 mg 12/28/19 09:00 12/28/19 08:28 Lisinopril 10 Mg Tab PO 10 mg DAILY NASIM Administration Morphine Sulfate 2 mg 12/26/19 11:14 12/28/19 06:11 Morphine 2 Mg/Ml Vial SLOW IVP 12/29/19 11:15 2 mg Q4H PRN Administration Moderate Pain (4-6) Ondansetron HCl 4 mg 12/25/19 22:53 12/26/19 10:28 Ondansetron Pf 4 Mg/2 Ml Vial IVP 4 mg Q6H PRN Administration Nausea/Vomiting Pantoprazole Sodium 40 mg 12/28/19 09:00 12/28/19 08:29 Pantoprazole 40 Mg Tab PO 40 mg DAILY NASIM Administration Sodium Chloride 10 ml 12/26/19 21:00 12/28/19 08:34 Flush - Normal Saline 10 Ml Syringe IVF Not Given Q12HR NASIM - Exam General Appearance: NAD Neck: supple, no JVD Heart: RRR, no gallops Respiratory: no wheezes, no rales Gastrointestinal: normal bowel sounds, no guarding, no rigidity, tender to palpation (In the epigastric region) Hosp A/P (1) Acute pancreatitis Code(s): K85.90 - ACUTE PANCREATITIS WITHOUT NECROSIS OR INFECTION, UNSP Status: Acute (2) Diabetic ketoacidosis Code(s): E11.10 - TYPE 2 DIABETES MELLITUS WITH KETOACIDOSIS WITHOUT COMA Status: Acute (3) Hyperkalemia Code(s): E87.5 - HYPERKALEMIA Status: Acute (4) Acute kidney injury Code(s): N17.9 - ACUTE KIDNEY FAILURE, UNSPECIFIED Status: Acute (5) New onset type 2 diabetes mellitus Code(s): E11.9 - TYPE 2 DIABETES MELLITUS WITHOUT COMPLICATIONS Status: Acute (6) Hypertriglyceridemia Code(s): E78.1 - PURE HYPERGLYCERIDEMIA Status: Acute (7) Electrolyte abnormality Code(s): E87.8 - OTH DISORDERS OF ELECTROLYTE AND FLUID BALANCE, NEC Status: Acute (8) Obesity (BMI 30.0-34.9) Code(s): E66.9 - OBESITY, UNSPECIFIED Status: Chronic - Plan DVT proph w/SCDs Restart lisinopril. Reduce IV fluid to 50 mL/h. Discontinue banana bag after today. Start thiamine, folic acid and multivitamin from a.m. Replace magnesium. Continue NPH 20 units in a.m. and 10 units every afternoon. Continue gemfibrozil. Continue PPIs continue pain medications. Recheck lipase and basic metabolic profile in a.m. Change diet back to clear liquid diet for next 12-24 hours. Possible discharge in a.m. if able to tolerate p.o. Consult case managers for medication assistance. 12/26 Continue banana bag daily. Will transition insulin drip to subcu Lantus. We will start with 20 units of Lantus. Insulin teaching. Replace electrolytes. Continue npo for acute pancreatitis. Will start gemfibrozil tomorrow. Change PPI to po. Moderate sliding scale with Accu-Chek q4 hourly. IV morphine for pain control. Recheck triglycerides and lipase in a.m. Counseled on diabetes mellitus type II 12/25 Continue IMCU monitoring. Continue insulin drip per protocol. Patient will require insulin drip due to significant hypertriglyceridemia. Will monitor electrolytes closely. Replace electrolytes. N.p.o. for acute pancreatitis. Change Pepcid to Protonix. GI input appreciated. N.p.o. except for sips of water and ice chips. Recheck labs in a.m. Dietitian input appreciated. Patient was extensively counseled on diabetes mellitus type 2. His A1c is 12.5. He will probably require insulin at discharge.
[2019-12-28] MEDS: HYDROcodone/Acetaminophen 5/325 mg Tablet PO PRN (16:25)
[2019-12-29] MEDS: HYDROcodone/Acetaminophen 5/325 mg Tablet PO PRN ×2 (01:43→08:25)
[2019-12-29] MEDS: 1/2 NS w/KCL 20 mEq 1,000 ML IV SCH (05:22)
[2019-12-29 06:26] LABS: Anion Gap 15 mmol/L (10-20); BUN (Urea Nitrogen) 9 mg/dL (8.9-20.6); Calc. Creatinine Clearance 266 mL/min (70-130); Calcium 8.3 mg/dL (7.8-10.44); Carbon Dioxide 23 mmol/L (22-29); Chloride 98 mmol/L (98-107); Estimated GFR-MDRD Greater than 90; Glucose 165 mg/dL (70-105); Lipase 152 U/L (8-78); Potassium 3.4 mmol/L (3.5-5.1); Sodium 133 mmol/L (136-145)
[2019-12-29] MEDS ORDERED: Potassium Chloride 20 MEQ TAB PO SCH (07:45)
[2019-12-29 07:52] VITALS: BP 151/109; TEMP 98
[2019-12-29] MEDS: Gemfibrozil 600 MG TAB PO SCH ×2 (08:25→15:56)
[2019-12-29] MEDS: Lisinopril 10 MG TAB PO SCH (08:26)
[2019-12-29] MEDS ORDERED: Folic Acid 1 MG TAB PO SCH (09:00)
[2019-12-29] MEDS ORDERED: Thiamine 100 MG TAB PO SCH (09:00)
[2019-12-29] MEDS ORDERED: Multivit, Therapeutic 1 TAB PO SCH (09:00)
[2019-12-29] MEDS: NPH, Human Insulin Isophane 300 UNIT/3 ML VIAL SC SCH (09:19)
[2019-12-29] MEDS: Insulin Regular 300 UNITS/3 ML VIAL SC PRN (13:19)
--- NOTE | 2019-12-29 16:51 | DIS ---
DATE OF ADMISSION: 12/25/2019 DATE OF DISCHARGE: 12/29/2019 DISCHARGE DISPOSITION: Home. FOLLOWUP: 1. Follow up with primary care physician next week at [facility]. 2. Renal ultrasound as outpatient is recommended. Primary care physician advised to follow. DISCHARGE MEDICATIONS: 1. NPH insulin 20 units in the morning and 10 units at bedtime. 2. Gemfibrozil 600 mg b.i.d. 3. Metformin 500 mg b.i.d. ALLERGIES: NO KNOWN DRUG ALLERGIES. THE PATIENT WAS SEEN AND EXAMINED ON THE DAY OF DISCHARGE. DENIES ANY NEW COMPLAINTS. NO CHEST PAIN, SHORTNESS OF BREATH, PALPITATIONS, NAUSEA, OR VOMITING REPORTED. ABDOMINAL PAIN IS SIGNIFICANTLY IMPROVED. BRIEF HOSPITAL COURSE: The patient is a 34-year-old male with hypertension, presented to the emergency room with nausea, vomiting, generalized malaise with 40-pound weight loss over the last 4 weeks. His initial blood sugar in the emergency room was 1260 with a serum creatinine of 4.5 and potassium of 6.7. His lipase was over 3000 with elevated triglyceride level of 1279. Please refer to the history and physical for further details. The patient was admitted to the intermediate care unit with a diagnosis of diabetic ketoacidosis with acute pancreatitis and acute kidney injury. He showed good improvement with IV hydration and insulin drip. His ketones on admission were 10.3 that improved to 3.0 next morning. There was no infectious etiology identified. His triglyceride level improved to 315 after 48 hours. Insulin drip was transitioned to subcu NPH. His creatinine at discharge is 0.67 with a potassium of 3.4. Electrolytes have been replaced. He has been restarted on lisinopril. Gemfibrozil was added for elevated triglyceride. He is comfortable with insulin injections. Life Alert bracelet was also recommended. He was also counseled on symptoms of hypoglycemia. CT scan of the abdomen and pelvis showed findings suspicious for acute pancreatitis with questionable hypodense lesion involving the kidneys, difficult to characterize due to their size. A followup renal ultrasound is recommended. It also showed fatty liver. SIGNIFICANT LABORATORY DATA: 1. Hemoglobin A1c of 12.5. 2. Lipase on admission was 3216, at discharge was 152. 3. Triglyceride on admission was 1279 and 315 yesterday. 4. Ketones on admission were 10.3. 5. Urine drug screen was negative. 6. Creatinine on admission was 4.5, at discharge was 0.6. FINAL DIAGNOSES: 1. Acute pancreatitis secondary to hypertriglyceridemia. 2. Severe diabetic ketoacidosis. 3. Severe acute kidney injury with creatinine of 4.5 on admission. 4. Severe hyperkalemia due to acute kidney injury and acidosis. 5. Hypertriglyceridemia. 6. Multiple electrolyte abnormalities including hyperkalemia, hypokalemia, hypophosphatemia, and hypomagnesemia. 7. Obesity with a BMI of 34.2. 8. Hyponatremia. The patient understands the above plan of care. Lifestyle modification was emphasized. He was also counseled by dietitian for dietary modification for diabetes. Job ID: [id number]
== END 2019-12-29 16:32 | disposition home or self-care (01) | DRG 438 ==
LOC: ERS 17:01 → IMCU/EMU 22:27 → T4-A 12-27 18:15
PROVIDERS: ADMIT Student in an Organized Health Care Education/Training Program; ATTEND Student in an Organized Health Care Education/Training Program
DX: K85.80 Other acute pancreatitis without necrosis or infection (principal); E11.10 Type 2 diabetes mellitus with ketoacidosis without coma; N17.9 Acute kidney failure, unspecified; I10 Essential (primary) hypertension; Z20.828 Contact with and (suspected) exposure to other viral communicable diseases; R63.4 Abnormal weight loss; E87.5 Hyperkalemia; E78.1 Pure hyperglyceridemia; E66.9 Obesity, unspecified; E86.0 Dehydration; Z79.899 Other long term (current) drug therapy; Z68.34 Body mass index [BMI] 34.0-34.9, adult
CPT/HCPCS: 36415; 36416; 74176; 80048; 80053; 80306; 80307; 81003; 81015; 82010; 82330; 82550; 82803; 83036; 83690; 83735; 83930; 84100; 84443; 84478; 84484; 85025; 87635; 93005; C9113; J1815; J1885; J2270; J2405; J3010; J3411; J3475; J3480; J3490; J7042; J7050; S0028; U0003